=== PATIENT | male | born 1970 | race Caucasian/White ===

== ENCOUNTER 2025-07-20 01:15 | Emergency (ER) | payer MEDICAID, OTHER ==
[~2025-07-20] VITALS: Ht 167.6 cm; Wt 78.2 kg
[2025-07-20 01:16] VITALS: O2SAT 99
[2025-07-20 01:18] VITALS: BP 130/85; PULSE 66; RESP 16; TEMP 36.7; O2SAT 100
[2025-07-20 01:47] VITALS: TEMP 98.1
[2025-07-20] MEDS: ACETAMINOPHEN 325MG TABLET PO ONE (01:47)
[2025-07-20 02:04] LABS: CLARITY URINE CLEAR (CLEAR); COLOR URINE YELLOW (YELLOW); GLUCOSE URINE NEGATIVE (NEGATIVE); KETONES URINE NEGATIVE (NEGATIVE); LEUKOCYTE ESTERASE URINE NEGATIVE (NEGATIVE); NITRITE URINE NEGATIVE (NEGATIVE); OCCULT BLOOD URINE NEGATIVE (NEGATIVE); PH URINE 6.0 (4.5-8.0); PROTEIN URINE NEGATIVE (NEGATIVE); SPECIFIC GRAVITY URINE 1.015 (1.005-1.030); UROBILINOGEN URINE 0.2 E.U./dL (0.2-1.0)
[2025-07-20 02:37] LABS: BASOPHILS % 0.5 % (0.0-2.0); EOSINOPHILS % 8.7 % (0.0-5.0); HEMATOCRIT. 43.3 % (42.0-52.0); HEMOGLOBIN. 14.5 g/dL (14.0-18.0); LYMPHOCYTES % 31.5 % (20.0-50.0); MONOCYTES % 8.0 % (2.0-8.0); NEUTROPHILS % 51.3 % (40.0-76.0); RED BLOOD CELL COUNT 4.72 mill/uL (4.7-6.1); RED CELL DISTRIBUTION WIDTH 13.0 % (11.6-14.6)
[2025-07-20 02:49] LABS: CREATININE 0.9 mg/dL (0.6-1.3); UREA NITROGEN BLOOD 15 mg/dL (9-23)
[2025-07-20 02:51] LABS: ASPARTATE AMINOTRANSFERASE 19 IU/L (<34)
[2025-07-20 02:52] LABS: BILIRUBIN DIRECT 0.3 mg/dL (<=3.0); BILIRUBIN TOTAL 1.0 mg/dL (0.1-1.0); PROTEIN TOTAL 7.4 g/dL (6.0-8.3)
[2025-07-20] MEDS ORDERED: MAG355OR21 MT (03:05)
[2025-07-20 07:46] LABS: MEAN PLATELET VOLUME 9.3 fl (7.4-10.4); PLATELET 174 x1000/uL (130-400)
== END 2025-07-20 03:21 | disposition home or self-care (01) ==
LOC: ER 01:15
DX: R14.0 Abdominal distension (gaseous) (principal); R10.9 Unspecified abdominal pain
CPT/HCPCS: 36415; 74176; 80048; 80076; 81003; 85025; 99284